=== PATIENT | male | born 1970 | race Caucasian/White ===

== ENCOUNTER 2018-11-20 16:04 | Emergency (ER) | END 2018-11-20 18:09 | disposition home or self-care (01) ==

== ENCOUNTER 2018-12-10 13:46 | Emergency (ER) | payer SELFPAY ==
[~2018-12-10 13:46] MED LIST: FLUC150T PO; HYDR-4011 PO; SULF1TAB31 PO
== END 2018-12-10 13:56 | disposition left against medical advice (07) ==
LOC: E/R 13:46
DX: Z53.21 Procedure and treatment not carried out due to patient leaving prior to being seen by health care provider (principal)

== ENCOUNTER 2018-12-18 23:02 | Emergency (ER) | payer SELFPAY ==
[~2018-12-18] VITALS: Ht 167.6 cm; Wt 133.2 kg
[2018-12-18 23:09] VITALS: BP 172/95; PULSE 87; RESP 18; Ht 167.6 cm; Wt 133.2 kg
--- NOTE | 2018-12-19 00:43 | ERD ---
ER Documentation Chief Complaint Chief Complaint UTI S/S- PAIN IN URIANTION; URGENCY FREQUENCY X1WK HPI 48-year-old male with history of balanitis presents with one-week history of dysuria, polyuria, incomplete voiding. Denies back pain, fevers, chills. States that he was here about a month ago for infection of the foreskin and was given prescription for Bactrim and it relieved the pain and swelling that he was having then. Denies penile discharge, unprotected intercourse, fevers, chills, testicular pain. Denies past medical history. Denies allergies. Denies medi cations. Denies surgeries. Denies alcohol, tobacco, drug use. Up to date on vaccines. ROS All systems reviewed and are negative except as per history of present illness. Medications Home Meds Active Scripts Fluconazole* (Diflucan*) 150 Mg Tablet, 150 MG PO ONCE, #1 TAB Take on last day of antibiotics ( in 5 days) Prov:PERICO FRIAS 12/19/18 Sulfamethoxazole/Trimethoprim* (Bactrim Ds* Tablet) 1 Each Tablet, 1 TAB PO BID for 1 Day, #14 TAB Prov:PERICO FRIAS 12/19/18 Hydrocodone/Acetaminophen ([place] 5-325 Tablet) 1 Each Tablet, 1 TAB PO Q6H PRN for PAIN, #7 TAB Prov:EDUARDO CAVAZOS MD 11/20/18 Allergies Allergies: Coded Allergies: No Known Allergy (Unverified , 11/20/18) PMhx/Soc Medical and Surgical Hx: pt denies Medical Hx, pt denies Surgical Hx Hx Alcohol Use: No Hx Substance Use: No Hx Tobacco Use: No Smoking Status: Never smoker FmHx Family History: diabetes Physical Exam Vitals Vital Signs Date Temp Pulse Resp B/P (MAP) Pulse Ox O2 O2 Flow FiO2 Time Delivery Rate 12/18/18 98.3 87 18 172/95 96 23:09 (120) Physical Exam Const: No acute distress Resp: Clear to auscultation bilaterally Cardio: Regular rate and rhythm, no murmurs : Phimosis noted on exam. Foreskin mildly edematous without paraphimosis, erythema, or necrosis. Neur: Awake and alert Psych: Normal Mood and Affect Results 24 hrs Laboratory Tests Test 12/19/18 00:41 Urine Color YELLOW Urine Clarity SLIGHTLY CLOUDY Urine pH 6.0 Urine Specific [place] 1.024 Urine Ketones TRACE mg/dL Urine Nitrite NEGATIVE mg/dL Urine Bilirubin NEGATIVE mg/dL Urine Urobilinogen NEGATIVE mg/dL Urine Leukocyte Esterase NEGATIVE Shailesh/ul Urine Microscopic RBC 2 /HPF Urine Microscopic WBC 6 /HPF Urine Squamous Epithelial Cells FEW /HPF Urine Hemoglobin NEGATIVE mg/dL Urine Glucose NEGATIVE mg/dL Urine Total Protein 2+ mg/dl Procedures/MDM 48-year-old male with history of balanitis presents with one-week history of dysuria, polyuria, incomplete voiding. Denies back pain, fevers, chills. States that he was here about a month ago for infection of the foreskin and was given prescription for Bactrim and it relieved the pain and swelling that he was having then. Denies penile discharge, unprotected intercourse, fevers, chills, testicular pain. PSA was ordered since patient was having symptoms consistent with BPH. I have low suspicion for paraphimosis, testicular torsion, pyelonephritis, or other emergent problem. Patient most likely having reoccurrence of balanitis. Patient given RX for bactrim and diflucan, said it worked last time. Discharged with strict ER precautions, advised to follow up with PMD and possibly urology given the phimosis and the reoccurring balanitis. Patient will call for PSA results. Patient advised to wash foreskin daily. All questions answered at discharge. Departure Diagnosis: Primary Impression: Phimosis Additional Impression: Balanitis Condition: Stable PERICO FRIAS Dec 19, 2018 00:43
[2018-12-19] MEDS ORDERED: SULF1TAB31 PO (01:56)
[2018-12-19] MEDS ORDERED: FLUC150T PO (01:56)
== END 2018-12-19 02:21 | disposition home or self-care (01) ==
LOC: FTE 23:02
DX: N47.1 Phimosis (principal); N48.1 Balanitis
CPT/HCPCS: 81001; 84153; 84154; 99283

== ENCOUNTER 2018-12-23 06:57 | Emergency (ER) | payer SELFPAY ==
[~2018-12-23] VITALS: Ht 170.2 cm; Wt 134.1 kg
[2018-12-23 07:01] VITALS: Ht 170.2 cm; Wt 134.1 kg
--- NOTE | 2018-12-23 07:14 | ERD ---
ER Documentation Chief Complaint Chief Complaint URINE RETENTION X8 HRS, PAIN REPORTED HPI 48-year-old man complains of urinary retention beginning hours ago. Patient has a history of urethral stricture, phimosis, and prior UTIs and urine retention. He denies back or flank pain, no fevers or chills, no chest pain or shortness of breath. ROS All systems reviewed and are negative except as per history of present illness. Medications Home Meds Active Scripts Cephalexin* (Keflex*) 500 Mg Capsule, 500 MG PO QID for 5 Days, CAP Prov:LYRIC SON MD 12/23/18 Fluconazole* (Diflucan*) 150 Mg Tablet, 150 MG PO ONCE, #1 TAB Take on last day of antibiotics ( in 5 days) Prov:PERICO FRIAS 12/19/18 Sulfamethoxazole/Trimethoprim* (Bactrim Ds* Tablet) 1 Each Tablet, 1 TAB PO BID for 1 Day, #14 TAB Prov:PERICO FRIAS 12/19/18 Hydrocodone/Acetaminophen ([place] 5-325 Tablet) 1 Each Tablet, 1 TAB PO Q6H PRN for PAIN, #7 TAB Prov:EDUARDO CAVAZOS MD 11/20/18 Allergies Allergies: Coded Allergies: No Known Allergy (Unverified , 11/20/18) PMhx/Soc Obesity, urinary retention, phimosis Hx Alcohol Use: No Hx Substance Use: No Hx Tobacco Use: No FmHx Family History: No diabetes Physical Exam Vitals Vital Signs Date Temp Pulse Resp B/P (MAP) Pulse Ox O2 O2 Flow FiO2 Time Delivery Rate 12/23/18 70 18 137/93 96 Room Air 08:32 (108) 12/23/18 97.1 88 18 170/86 94 07:01 (114) Physical Exam GENERAL: Well-developed, well-nourished, well-hydrated, in no apparent distress, looks nontoxic in appearance CARDIAC: Regular rate and rhythm, no murmurs rubs or gallops LUNGS: Clear bilaterally no wheezing crackles or stridor ABDOMEN: Soft nontender, no guarding, no rigidity, no rebound, no psoas sign no obturator sign. SKIN: Warm and dry to touch, no abrasions, contusions, or hematomas, no lacerations, no ecchymosis, no target lesions, and without ulcers EXTREMITIES: No clubbing cyanosis, 3+ pitting edema in the lower extremities bilaterally, calves are bilaterally symmetrical, no Homans sign, no popliteal cord sign. Distal pulses equal and bilateral PSYCH: Normal affect without agitation or irritability Result Diagram: 12/23/18 0735 12/23/18 0735 Results 24 hrs Laboratory Tests Test 12/23/18 07:35 12/23/18 08:19 White Blood Count 12.8 10^3/ul Red Blood Count 5.34 10^6/ul Hemoglobin 15.8 g/dl Hematocrit 46.6 % Mean Corpuscular Volume 87.3 fl Mean Corpuscular Hemoglobin 29.6 pg Mean Corpuscular Hemoglobin Concent 33.9 g/dl Red Cell Distribution Width 12.3 % Platelet Count 317 10^3/UL Mean Platelet Volume 9.2 fl Immature Granulocytes % 0.300 % Neutrophils % 67.2 % Lymphocytes % 22.4 % Monocytes % 8.6 % Eosinophils % 1.0 % Basophils % 0.5 % Nucleated Red Blood Cells % 0.0 /100WBC Immature Granulocytes # 0.040 10^3/ul Neutrophils # 8.6 10^3/ul Lymphocytes # 2.9 10^3/ul Monocytes # 1.1 10^3/ul Eosinophils # 0.1 10^3/ul Basophils # 0.1 10^3/ul Nucleated Red Blood Cells # 0.0 10^3/ul Sodium Level 137 mmol/L Potassium Level 4.2 mmol/L Chloride Level 100 mmol/L Carbon Dioxide Level 22 mmol/L Anion Gap 15 Blood Urea Nitrogen 21 mg/dl Creatinine 1.13 mg/dl Est Glomerular Filtrat Rate mL/min > 60 mL/min Glucose Level 153 mg/dl Calcium Level 10.1 mg/dl Urine Color YELLOW Urine Clarity CLEAR Urine pH 5.0 Urine Specific [place] 1.017 Urine Ketones NEGATIVE mg/dL Urine Nitrite NEGATIVE mg/dL Urine Bilirubin NEGATIVE mg/dL Urine Urobilinogen NEGATIVE mg/dL Urine Leukocyte Esterase 1+ Shailesh/ul Urine Microscopic RBC 4 /HPF Urine Microscopic WBC 74 /HPF Urine Bacteria FEW /HPF Urine Mucus FEW /HPF Urine Hemoglobin NEGATIVE mg/dL Urine Glucose NEGATIVE mg/dL Urine Total Protein 2+ mg/dl Current Medications Medications Dose Sig/Raul Start Time Status Last (Trade) Ordered Route PRN Stop Time Admin Dose Reason Admin Morphine 4 mg ONCE STAT 12/23/18 DC 12/23/18 Sulfate IV 07:38 07:47 (morphine) 12/23/18 07:39 Ondansetron 4 mg ONCE STAT 12/23/18 DC 12/23/18 HCl (Zofran IV 07:38 07:47 Inj) 12/23/18 07:39 Procedures/MDM CBC and electrolytes were normal, urinalysis concerning for early UTI. Barrett catheter could not be placed by ED staff so I obtained consultation, Dr. Kern saw and evaluated the patient at the bedside and placed a Barrett catheter and leg bag Over 500 cc urine output obtained, bladder distention resolved and patient felt much better. recommendations were provided, patient will follow up with PMD Differential diagnoses considered, included but not limited to acute coronary syndrome, pulmonary embolism, aortic dissection, abdominal aortic aneurysm, sepsis, stroke, meningitis, encephalitis, pneumonia, appendicitis, cholecystitis, bowel obstruction, pyelonephritis, nephrolithiasis, cystitis, as well as metabolic, hematologic, and electrolyte abnormalities. As well as abscess, cellulitis, fractures, and dislocations. Patient feels much better at this time, and vital signs are normal, symptoms h ave improved. I did give strict instructions to return to the ED if symptoms continue or worsen, patient will otherwise follow-up with primary care physician. Patient understood instructions and agreed to plan. Disclaimer: Inadvertent spelling and grammatical errors are likely due to EHR/dictation software use and do not reflect on the overall quality of patient care. Also, please note that the electronic time recorded on this note does not necessarily reflect the actual time of the patient encounter. Departure Diagnosis: Primary Impression: Retention of urine Additional Impressions: Phimosis Acute UTI Condition: Good LYRIC SON MD Dec 23, 2018 07:14
[2018-12-23] MEDS ORDERED: morphine 4 MG/ML VIAL IV STA (07:38)
[2018-12-23] MEDS ORDERED: ONDANSETRON 4 MG INJ IV STA (07:38)
[2018-12-23] MEDS ORDERED: CEPH-443 PO (08:27)
[2018-12-23 08:32] VITALS: BP 137/93; PULSE 70; RESP 18
--- NOTE | 2018-12-23 10:57 | CONS ---
Assessment/Plan Assessment/Plan Hospital Course (Demo Recall) 48-year-old man complains of urinary retention beginning hours ago. Patient has a history of urethral stricture, phimosis, and prior UTIs and urine retention attempt by the staff to insert a brannon were not successful. suprapubic pain,Has balanitis and severe phimosis.The foreskin is closed,only 3Fr size filiform did go in. I dilated him with filiforms and followers to #[id number] then inserted a 16 spanish brannon He needs to have a circumcision .Instructed to go to [facility] Consultation Date/Type/Reason Admit Date/Time Nov Date of Consultation: Dec 23, 2018 Type of Consult Urology Reason for Consultation urinary retention,difficulty inserting a brannon Requesting Provider: LYRIC SON MD Date/Time of Note DATE: 12/23/18 TIME: 10:50 Hx of Present Illness 48-year-old man complains of urinary retention beginning hours ago. Patient has a history of urethral stricture, phimosis, and prior UTIs and urine retention attempt by the staff to insert a brannon were not successful. Genitourinary: other (suprapubic pain) Past Medical History Medical History: no pertinent history Home Meds Active Scripts Cephalexin* (Keflex*) 500 Mg Capsule, 500 MG PO QID for 5 Days, CAP Prov:LYRIC SON MD 12/23/18 Fluconazole* (Diflucan*) 150 Mg Tablet, 150 MG PO ONCE, #1 TAB Take on last day of antibiotics ( in 5 days) Prov:PERICO FRIAS 12/19/18 Sulfamethoxazole/Trimethoprim* (Bactrim Ds* Tablet) 1 Each Tablet, 1 TAB PO BID for 1 Day, #14 TAB Prov:PERICO FRIAS 12/19/18 Hydrocodone/Acetaminophen ([place] 5-325 Tablet) 1 Each Tablet, 1 TAB PO Q6H PRN for PAIN, #7 TAB Prov:EDUARDO CAVAZOS MD 11/20/18 Allergies: Coded Allergies: No Known Allergy (Unverified , 11/20/18) Past Surgical History Past Surgical Hx: no surgical history Social History Smoking Status: Never smoker Exam/Review of Systems Exam Vitals Vital Signs Date Temp Pulse Resp B/P (MAP) Pulse Ox O2 O2 Flow FiO2 Time Delivery Rate 12/23/18 70 18 137/93 96 Room Air 08:32 (108) 12/23/18 97.1 07:01 Constitutional: alert Genitourinary - Male: other (suprapubic pain,Has balanitis and severe phimosis.The foreskin is closed,only 3Fr size filiform did go in) Results Result Diagram: 12/23/18 0735 12/23/18 0735 Results 24hrs Laboratory Tests Test 12/23/18 07:35 12/23/18 08:19 White Blood Count 12.8 H Red Blood Count 5.34 Hemoglobin 15.8 Hematocrit 46.6 Mean Corpuscular Volume 87.3 Mean Corpuscular Hemoglobin 29.6 Mean Corpuscular Hemoglobin Concent 33.9 Red Cell Distribution Width 12.3 Platelet Count 317 Mean Platelet Volume 9.2 Immature Granulocytes % 0.300 Neutrophils % 67.2 Lymphocytes % 22.4 Monocytes % 8.6 Eosinophils % 1.0 Basophils % 0.5 Nucleated Red Blood Cells % 0.0 Immature Granulocytes # 0.040 H Neutrophils # 8.6 H Lymphocytes # 2.9 Monocytes # 1.1 H Eosinophils # 0.1 Basophils # 0.1 Nucleated Red Blood Cells # 0.0 Sodium Level 137 Potassium Level 4.2 Chloride Level 100 Carbon Dioxide Level 22 Anion Gap 15 H Blood Urea Nitrogen 21 H Creatinine 1.13 Est Glomerular Filtrat Rate mL/min > 60 Glucose Level 153 Calcium Level 10.1 Urine Color YELLOW Urine Clarity CLEAR Urine pH 5.0 Urine Specific [place] 1.017 Urine Ketones NEGATIVE Urine Nitrite NEGATIVE Urine Bilirubin NEGATIVE Urine Urobilinogen NEGATIVE Urine Leukocyte Esterase 1+ H Urine Microscopic RBC 4 Urine Microscopic WBC 74 H Urine Bacteria FEW A Urine Mucus FEW A Urine Hemoglobin NEGATIVE Urine Glucose NEGATIVE Urine Total Protein 2+ H CHANELL ALARCON MD Dec 23, 2018 10:57
== END 2018-12-23 09:06 | disposition home or self-care (01) ==
LOC: E/R 06:57
DX: R33.9 Retention of urine, unspecified (principal); N47.1 Phimosis; N39.0 Urinary tract infection, site not specified
CPT/HCPCS: 51702; 80048; 81001; 85025; J2270; J2405; 36415; 96374; 96375